=== PATIENT | female | born 1975 | race American Indian/Alaskan Native ===

== ENCOUNTER 2017-08-16 05:38 | Day surgery (SDC) | payer OTHER ==
[~2017-08-16 05:38] MED LIST: NACL 0.9% 1000 ML 1,000 ML IV SCH; PEPCID PO NR; VERSED IV NR
--- NOTE | 2017-08-16 06:39 | Short Stay Summary ---
Short Stay Documentation Date of service: 08/16/17 Narrative H&P: Pt is a 42yo BF G0 LMP 08/12/17 presents for a Novasure endometrial ablation due to prolonged heavy vaginal bleeding unresponsive to hormonal therapy. Pt does not desire fertility. Endometrial biopsy was benign. - History Principal diagnosis: DUB H&P: obtained from office Past Medical History: No medical history Past Surgical History: No surgical history Social history: no significant social history, single - Allergies and Medications Current Medications: Allergies No Known Allergies Allergy (Unverified 08/12/17 18:29) Home Medications Medication Instructions Recorded Confirmed Last Taken Type No Known Home Medications [No 08/12/17 08/12/17 Unknown History Reported Home Medications] Active Medications Famotidine (Pepcid) 20 mg PO PREOP NR Stop: 08/16/17 23:45 Sodium Chloride (Nacl 0.9% 1000 Ml) 1,000 mls @ 100 mls/hr IV DIRECT JEWELL Midazolam HCl (Versed) 2 mg IV PREOP NR Stop: 08/16/17 23:45 - Physical exam General appearance: no acute distress Integumentary: no rash HEENT: Atraumatic Lungs: Clear to auscultation Breasts: deferred Heart: Regular rate Gastrointestinal: normal Female Genitourinary: deferred Rectal Exam: deferred Extremities: no ischemia, No edema Neurological: Normal gait, Normal speech - Brief post op/procedure progress note Date of procedure: 08/16/17 Pre-op diagnosis: Dysfunctional uterine bleeding Post-op diagnosis: same Procedure: 1. Hysteroscopy 2. Novasure endometrial ablation Anesthesia: MAC Findings: A normal uterus with uterine cavity length 4.5cm, cavity width 3.6cm, and 89 Cannon of Power was used for 65 seconds to perform the ablation. No endometrial masses seen. Surgeon: ROSANNE GRAF Estimated blood loss: minimal Pathology: none Condition: stable - Hospital course Hospital course: Unremarkable. - Disposition Condition at discharge: Good Disposition: DC-01 TO HOME OR SELFCARE - Discharge Diagnoses (1) Dysfunctional uterine bleeding Status: Chronic Short Stay Discharge Plan Activity: no restrictions Diet: regular Follow up with: ROSANNE GRAF MD [Staff Physician] - 14 Days Prescriptions: HYDROcodone/APAP 5-325 [[place] 5/325] 1 each PO Q6HR PRN #20 tablet PRN Reason: Pain
[2017-08-16] MEDS ORDERED: NACL BACTERIOSTATIC INFILTRATI ONE (06:45)
[2017-08-16] MEDS ORDERED: ANCEF/STERILE WATER 2 GM/20 ML 2 GM/20 ML SYRINGE IV NR (07:00)
[2017-08-16] MEDS ORDERED: VERSED IV NR (07:00)
[2017-08-16] MEDS ORDERED: LACTATED RINGERS 1,000 ML IV SCH (07:00)
[2017-08-16] MEDS ORDERED: PEPCID PO NR (07:00)
--- NOTE | 2017-08-16 07:15 | Anesthesia Consultation ---
Anesthesia Consult and Med Hx Date of service: 08/16/17 - Airway Anesthetic Teeth Evaluation: Good ROM Head & Neck: Adequate Mental/Hyoid Distance: Adequate Mallampati Class: Class II Intubation Access Assessment: Probably Good - Pulmonary Exam CTA: Yes - Cardiac Exam Cardiac Exam: RRR - Pre-Operative Health Status ASA Pre-Surgery Classification: ASA2 Proposed Anesthetic Plan: General - Pulmonary Hx Smoking: Yes - Central Nervous System Hx Psychiatric Problems: No - Other Systems Hx Substance Use: Yes (marijuana x 2 per week) Hx Cancer: No
--- NOTE | 2017-08-16 07:15 | Anesthesia Day of Surgery ---
Anesthesia Day of Surgery - Day of Surgery Patient Examined: Yes Patient H&P Reviewed: Yes Patient is NPO: Yes
[2017-08-16] MEDS ORDERED: DECADRON ONE (07:30)
[2017-08-16] MEDS ORDERED: SUBLIMAZE ONE (07:30)
[2017-08-16] MEDS ORDERED: XYLOCAINE MPF 2% ONE (07:30)
[2017-08-16] MEDS ORDERED: ZOFRAN ONE (07:30)
[2017-08-16] MEDS ORDERED: DIPRIVAN 10 MG/ML IV ONE (07:30)
[2017-08-16 07:38] LABS: Hematocrit 39.6 % (30.3-42.9); Hemoglobin 12.8 gm/dl (10.1-14.3)
[2017-08-16] MEDS ORDERED: PERCOCET 5/325 PO PRN (08:00)
[2017-08-16] MEDS ORDERED: TORADOL ONE (08:29)
[2017-08-16] MEDS ORDERED: NACL 0.9% IR ONE (08:45)
--- NOTE | 2017-08-16 08:59 | Operative Report ---
Operative Report Operative Report: Date of procedure: 08/16/2017 Pre-operative diagnosis: Dysfunctional uterine bleeding Post-operative diagnosis: Same Procedure name(s): 1. Hysteroscopy 2. NovaSure endometrial ablation Surgeon: Ashvin Pennington MD Change Agent: None Anesthesia: Gen. mask by Dr. De Jesus EBL: Minimal Findings: A normal uterus with uterine cavity length of 4.5 cm, cavity width of 3.6 cm, and 89 W of Power was used to 65 seconds to perform the ablation. There were no uterine masses noted. Procedure: After the patient was correctly identified, she was prepped and draped in the usual sterile fashion and placed in the dorsolithotomy position. First the bladder was emptied using a straight catheter. Next a speculum was placed in the vaginal vault and the anterior lip of the cervix was grasped using single-tooth tenaculum. The uterus was sounded to 9 cm. The cervical os was sequentially dilated, and the hysteroscope was introduced into the cervical canal. Visualization of the endometrial cavity found a moderate amounts of bleeding, but no masses were seen. The hysteroscope was then removed, and the NovaSure device is placed into the endometrial cavity, with the cervical length set at 4.5 cm. After the normal manipulation of the NovaSure device, the cavity width was 3.6 cm, and 89 W of Power was used for 65 seconds to perform the ablation. After satisfactory ablation, the hysteroscope was reintroduced into the cervical canal and excellent ablation was assured. The procedure was considered complete. All instruments were then removed from the vagina, the patient tolerated the procedure well and was transferred to recovery in stable condition.
[2017-08-16] MEDS: DILAUDID IV PRN ×4 (09:15→09:48)
[2017-08-16] MEDS ORDERED: NORCO 5/325 PO SCH (10:20)
[2017-08-16 11:12] VITALS: BP 139/80
--- NOTE | 2017-08-16 18:54 | Post Anesthesia Evaluation ---
- Post Anesthesia Evaluation Patient Participated: Yes Airway Patent: Yes Stable Respiratory Function: Yes Nausea/Vomiting: No Temp > 96.8F: Yes Pain Manageable: Yes Adequeate Hydration: Yes Anesthesia Complications: No Block Receding Appropriately: Not Applicable Patient on Ventilator: No
== END 2017-08-16 11:09 | disposition home or self-care (01) ==
LOC: OR 05:38
PROVIDERS: ATTEND Obstetrics & Gynecology
DX: N93.8 Other specified abnormal uterine and vaginal bleeding (principal); F12.90 Cannabis use, unspecified, uncomplicated; F17.200 Nicotine dependence, unspecified, uncomplicated
CPT/HCPCS: 36415; 58563; 81025; 85014; 85018; A4217; J0690; J1100; J1170; J1885; J2250; J2405; J2704; J3010; J7030

== ENCOUNTER 2017-08-23 04:11 | Emergency (ER) | payer OTHER ==
[2017-08-23] MEDS ORDERED: TORADOL ONE (04:39)
[2017-08-23 04:58] LABS: Basophils % (Auto) 0.5 % (0.0-1.8); Eosinophils % (Auto) 0.3 % (0.0-4.3); Hematocrit 40.3 % (30.3-42.9); Hemoglobin 13.1 gm/dl (10.1-14.3); Mean Corpuscular HGB Conc 33 % (30-34); Mean Corpuscular Volume 77 fl (79-97); Platelet Count 320 K/mm3 (140-440); Red Blood Count 5.23 M/mm3 (3.65-5.03); Red Cell Distribution Width 18.1 % (13.2-15.2); White Blood Count 10.7 K/mm3 (4.5-11.0)
[2017-08-23 05:06] LABS: Mean Corpuscular Hemoglobin 25 pg (28-32)
[2017-08-23] MEDS ORDERED: TORADOL IV ONE (05:09)
[2017-08-23 05:19] LABS: Alanine Aminotransferase 11 units/L (7-56); Albumin 4.1 g/dL (3.9-5); Alkaline Phosphatase 78 units/L (35-129); Anion Gap 22 mmol/L; BUN/Creatinine Ratio 13; Blood Urea Nitrogen 9 mg/dL (7-17); Calcium 9.6 mg/dL (8.4-10.2); Carbon Dioxide 23 mmol/L (22-30); Chloride 99.3 mmol/L (98-107); Glucose 102 mg/dL (65-100); Lipase 17 units/L (13-60); Potassium 4.1 mmol/L (3.6-5.0); Sodium 140 mmol/L (137-145); Total Protein 8.1 g/dL (6.3-8.2)
[2017-08-23 05:55] LABS: Bilirubin,Urine SM (Negative); Blood,Urine NEG (Negative); Ketones,Urine TR mg/dL (Negative); Leukocyte Esterase,Urine NEG (Negative); Nitrite,Urine NEG (Negative)
[2017-08-23 05:56] LABS: WBC,Urine < 1.0 /HPF (0.0-6.0)
--- NOTE | 2017-08-23 09:53 | Emergency Department Report ---
Chief Complaint: Abdominal Pain Stated Complaint: ABDOMINAL PAIN Time Seen by Provider: 08/23/17 09:50 - HPI History of Present Illness: PT c/o abd pain that started at 0230 while at work. PT states she had a uterine ablation on 08-16-17 - Review of Systems: + nausea + vomiting + abd pain + dysuria - Exam Vital Signs: Vital Signs 08/23/17 04:19 Temperature 98.4 F Pulse Rate 109 H Respiratory 18 Rate Blood Pressure 135/83 O2 Sat by Pulse 100 Oximetry Physical Exam: abd soft + RUQ and epigastric ttp MSE screening note: Focused history and physical exam performed. Due to findings the following was ordered: ED Medical Decision Making - Lab Data Result diagrams: 08/23/17 04:44 08/23/17 04:44 ED Disposition for MSE Condition: Stable Instructions: Abdominal Pain (ED) Referrals: PRIMARY CARE, [Primary Care Provider] - 3-5 Days
[2017-08-23] MEDS ORDERED: NACL 0.9% 1000 ML 1,000 ML IV ONE (09:55)
[2017-08-23] MEDS ORDERED: ZOFRAN IV ONE (09:55)
--- NOTE | 2017-08-23 10:21 | Emergency Department Report ---
ED Abdominal Pain HPI - General Chief Complaint: Abdominal Pain Stated Complaint: ABDOMINAL PAIN Time Seen by Provider: 08/23/17 09:50 Source: patient, family Mode of arrival: Stretcher Limitations: No Limitations - History of Present Illness Severity scale (0 -10): 10 - Related Data Previous Rx's Medication Instructions Recorded Last Taken Type HYDROcodone/APAP 5-325 [[place] 1 each PO Q6HR PRN #20 tablet 08/16/17 Unknown Rx 5/325] Allergies Allergy/AdvReac Type Severity Reaction Status Date / Time No Known Allergies Allergy Unverified 08/12/17 18:29 ED Review of Systems ROS: Stated complaint: ABDOMINAL PAIN Other details as noted in HPI ED Past Medical Hx - Past Medical History Previous Medical History?: No Hx HIV: No - Surgical History Past Surgical History?: Yes Additional Surgical History: Uterine Ablation - Social History Smoking Status: Current Every Day Smoker Substance Use Type: None - Medications Home Medications: Home Medications Medication Instructions Recorded Confirmed Last Taken Type HYDROcodone/APAP 5-325 [[place] 1 each PO Q6HR PRN #20 tablet 08/16/17 Unknown Rx 5/325] ED Physical Exam - General Limitations: No Limitations ED Course Vital Signs 08/23/17 08/23/17 08/23/17 04:19 05:40 09:54 Temperature 98.4 F 98.4 F Pulse Rate 109 H 96 H Respiratory 18 20 18 Rate Blood Pressure 135/83 146/87 Blood Pressure 146/87 [Right] O2 Sat by Pulse 100 100 Oximetry 08/23/17 09:57 Temperature Pulse Rate Respiratory 18 Rate Blood Pressure Blood Pressure [Right] O2 Sat by Pulse 98 Oximetry ED Medical Decision Making - Lab Data Result diagrams: 08/23/17 04:44 08/23/17 04:44 Critical care attestation.: If time is entered above; I have spent that time in minutes in the direct care of this critically ill patient, excluding procedure time. ED Disposition Condition: Stable Instructions: Abdominal Pain (ED) Referrals: PRIMARY CARE, [Primary Care Provider] - 3-5 Days
--- NOTE | 2017-08-23 10:47 | Ultrasound Report ---
Ultrasound of the right upper quadrant. History: Right upper quadrant pain, nausea, and vomiting. Findings: The abdominal aorta and liver are normal. The wall of the gallbladder is normal in thickness. There is a somewhat rounded area of increased echogenicity in the neck of the gallbladder with no acoustic shadowing. This is gravity dependent. The common bile duct is normal. The right kidney is normal in size and configuration. The pancreas is not well imaged due to technical factors. Impression: Coalescent gallbladder sludge formation with no other significant findings.
[2017-08-23] MEDS ORDERED: CARAFATE PO ONE (10:52)
[2017-08-23] MEDS ORDERED: PEPCID IV ONE (10:52)
--- NOTE | 2017-08-23 10:55 | Emergency Department Report ---
ED General Adult HPI - General Chief complaint: Abdominal Pain Stated complaint: ABDOMINAL PAIN Time Seen by Provider: 08/23/17 09:50 Source: patient, family, RN notes reviewed Mode of arrival: Stretcher Limitations: No Limitations - History of Present Illness Initial comments: This is a 42-year-old female who was previously unknown to this provider. She does not have a primary care doctor. She reports a history of symptomatic vaginal bleeding, on August 16 had an outpatient uterine ablation performed by Dr. Pennington. She presents to the ER with lower abdominal pain and cramping, nausea and vomiting, epigastric and right upper quadrant pain, intermittent shortness of breath, and upper thoracic back pain. Her symptoms have been going on for the past day and a half, abdominal pain increases with palpation and decreases with rest. It does not radiate anywhere. She describes vaginal discomfort, vaginal discharge, denies irritative and obstructive urinary symptoms. No leg pain, no leg swelling, no cocaine use, no recent travel. -: Gradual Location: back, abdomen, pelvis Radiation: back Severity scale (0 -10): 10 Quality: aching Consistency: intermittent Improves with: rest Worsens with: movement Associated Symptoms: loss of appetite, malaise, nausea/vomiting, shortness of breath, weakness - Related Data Previous Rx's Medication Instructions Recorded Last Taken Type HYDROcodone/APAP 5-325 [[place] 1 each PO Q6HR PRN #20 tablet 08/16/17 Unknown Rx 5/325] Dicyclomine [Bentyl] 10 mg PO QID PRN #20 capsule 08/23/17 Unknown Rx Famotidine [Pepcid] 20 mg PO QDAY #30 tablet 08/23/17 Unknown Rx Ondansetron [Zofran Odt] 4 mg PO QID PRN #20 tab.rapdis 08/23/17 Unknown Rx Allergies Allergy/AdvReac Type Severity Reaction Status Date / Time No Known Allergies Allergy Unverified 08/12/17 18:29 ED Review of Systems ROS: Stated complaint: ABDOMINAL PAIN Other details as noted in HPI Constitutional: denies: fever Eyes: denies: eye discharge ENT: denies: epistaxis Respiratory: denies: cough Cardiovascular: denies: chest pain Gastrointestinal: abdominal pain Genitourinary: discharge Musculoskeletal: denies: back pain Skin: denies: lesions Neurological: denies: confusion Psychiatric: anxiety ED Past Medical Hx - Past Medical History Previous Medical History?: No Hx HIV: No - Surgical History Past Surgical History?: Yes Additional Surgical History: Uterine Ablation - Social History Smoking Status: Current Every Day Smoker Substance Use Type: None - Medications Home Medications: Home Medications Medication Instructions Recorded Confirmed Last Taken Type HYDROcodone/APAP 5-325 [[place] 1 each PO Q6HR PRN #20 tablet 08/16/17 Unknown Rx 5/325] Dicyclomine [Bentyl] 10 mg PO QID PRN #20 capsule 08/23/17 Unknown Rx Famotidine [Pepcid] 20 mg PO QDAY #30 tablet 08/23/17 Unknown Rx Ondansetron [Zofran Odt] 4 mg PO QID PRN #20 tab.rapdis 08/23/17 Unknown Rx ED Physical Exam - General Limitations: No Limitations General appearance: alert, in no apparent distress - Head Head exam: Present: atraumatic, normocephalic - Eye Eye exam: Present: normal appearance, EOMI. Absent: nystagmus - ENT ENT exam: Present: normal exam, normal orophraynx, mucous membranes moist, normal external ear exam - Neck Neck exam: Present: normal inspection, full ROM. Absent: tenderness, meningismus - Respiratory Respiratory exam: Present: normal lung sounds bilaterally. Absent: respiratory distress, wheezes, rales, rhonchi, stridor, chest wall tenderness, accessory muscle use, decreased breath sounds, prolonged expiratory - Cardiovascular Cardiovascular Exam: Present: regular rate, normal rhythm, normal heart sounds. Absent: bradycardia, tachycardia, irregular rhythm, systolic murmur, diastolic murmur, rubs, gallop - GI/Abdominal GI/Abdominal exam: Present: soft, tenderness, normal bowel sounds, other (there is epigastric tenderness, right upper quadrant tenderness, mild lower abdominal tenderness.). Absent: distended, guarding, rebound, rigid, pulsatile mass - External exam: Present: normal external exam Speculum exam: Present: normal speculum exam Bi-manual exam: Present: normal bi-manual exam, other (escorted by ROSLYN Nazario). Absent: cervical motion tendernes, adnexal tenderness, adnexal mass, uterine enlargement, uterine tenderness - Extremities Exam Extremities exam: Present: normal inspection, full ROM, normal capillary refill. Absent: pedal edema, joint swelling - Back Exam Back exam: Present: normal inspection, full ROM. Absent: tenderness, CVA tenderness (R), CVA tenderness (L), muscle spasm, paraspinal tenderness, vertebral tenderness - Neurological Exam Neurological exam: Present: alert, oriented X3, normal gait, other (Extraocular movements intact. Tongue midline. No facial droop. Facial sensation intact to light touch in the V1, V2, V3 distribution bilaterally. 5 and 5 strength in 4 extremities.. Sensation is intact to light touch in 4 extremities.). Absent : motor sensory deficit - Psychiatric Psychiatric exam: Present: normal affect, normal mood - Skin Skin exam: Present: warm, dry, intact, normal color. Absent: rash ED Course Vital Signs 08/23/17 08/23/17 08/23/17 04:19 05:40 09:54 Temperature 98.4 F 98.4 F Pulse Rate 109 H 96 H Respiratory 18 20 18 Rate Blood Pressure 135/83 146/87 Blood Pressure 146/87 [Right] O2 Sat by Pulse 100 100 Oximetry 08/23/17 08/23/17 09:57 13:00 Temperature 98.6 F Pulse Rate 92 H Respiratory 18 18 Rate Blood Pressure Blood Pressure 124/75 [Right] O2 Sat by Pulse 98 100 Oximetry - Reevaluation(s) Reevaluation #1: 08/23/17 13:22 Differential diagnosis: GERD, gastritis, pneumonia, pulmonary embolus, acute coronary syndrome, constipation, postsurgical complication, hiatal hernia Assessment and plan: 42-year-old female with abdominal discomfort, upper thoracic pain, nausea, vomiting, intermittent shortness of breath. Low risk by KRUNAL score, low risk by heart score, EKG and troponin unremarkable, troponin negative 2. Low risk for major adverse cardiac event. CT scan of the chest will be obtained to exclude postsurgical pulmonary embolus. CT scan of abdomen and pelvis will be obtained to exclude postsurgical intra- abdominal complications. Gynecologic examination is benign, urinalysis negative , wet prep negative, CT scan of the chest, abdomen, pelvis pending. White upper quadrant ultrasound negative for acute disease. Incidental sludge is suggested. Reevaluation #2: 08/23/17 13:25 Given lack of fever, normal liver function tests, normal lipase, ultrasound findings, I think acalculous cholecystitis is very unlikely. Reevaluation #3: 08/23/17 14:22 CT scan of the chest negative. CT scan of the abdomen and pelvis negative. Feels improved. Belly soft on repeat exam. Tolerating liquid feeds. Will be discharged with nonnarcotic pain medication, nausea medication, instructions to follow up with outpatient cardiology within the next week. Instructions to follow up with outpatient gastroenterology within the next month. ED Medical Decision Making - Lab Data Result diagrams: 08/23/17 04:44 08/23/17 04:44 - EKG Data -: EKG Interpreted by Me EKG shows normal: sinus rhythm, axis, intervals, QRS complexes, ST-T waves - EKG Data When compared to previous EKG there are: previous EKG unavailable 08/23/17 13:25 Sinus, 83 bpm, normal intervals, normal axis, not morphologically consistent with STEMI - Radiology Data Radiology results: report reviewed, image reviewed Laboratory quadrant ultrasound suggests sludge, otherwise no acute disease. No evidence of stone at this time. CT scan of the chest negative. CT scan of the abdomen and pelvis negative. Incidental findings suggested an adrenal glands, these are likely benign, the patient can follow up with an outpatient primary care doctor. Critical care attestation.: If time is entered above; I have spent that time in minutes in the direct care of this critically ill patient, excluding procedure time. ED Disposition Clinical Impression: Abdominal pain Disposition: DC-01 TO HOME OR SELFCARE Is pt being admited?: No Does the pt Need Aspirin: No Condition: Stable Instructions: Abdominal Pain (ED) Additional Instructions: Cultures were sent today, was also be available next 3-5 days. Have a primary care doctor contact medical records department to obtain culture results. Avoid consumption of heavy/spicy foods, avoid consumption of Naprosyn, ibuprofen , Aleve, aspirin. Take the pain medication, and nausea medication as directed. Follow up with any of the listed wound specialist or primary care doctor within the next week for the Epigastric abdominal pain and upper back pain. Follow up with any of the listed gastroenterology specialist ([facility]) Within the next 4 weeks. return to the ER right away with new pain, worsened pain, migration of pain, fevers, chills, lethargy, irritability, projectile vomiting, change in mental status, inability to tolerate liquid feeds. Prescriptions: Dicyclomine [Bentyl] 10 mg PO QID PRN #20 capsule PRN Reason: Pain Famotidine [Pepcid] 20 mg PO QDAY #30 tablet Ondansetron [Zofran Odt] 4 mg PO QID PRN #20 tab.rapdis PRN Reason: Nausea Referrals: PRIMARY CARE,MD [Primary Care Provider] - 3-5 Days [facility] [Provider Group] - 3-5 Days [facility] [Provider Group] - 3-5 Days [facility] [Provider Group] - 3-5 Days Forms: Work/School Release Form(ED)
[2017-08-23] MEDS ORDERED: BENTYL PO ONE (12:00)
[2017-08-23] MEDS ORDERED: NACL ONE (12:27)
[2017-08-23 13:12] VITALS: BP 124/75
--- NOTE | 2017-08-23 13:50 | Cat Scan Report ---
CT angiography of the chest with 3-D reconstructed images. History: Chest pain. Findings: There is no evidence of pulmonary embolus. The lungs are clear. There is no pleural fluid. Impression: Normal study.
--- NOTE | 2017-08-23 13:56 | Cat Scan Report ---
CT of the abdomen and pelvis with IV contrast. History: Abdominal pain. Findings: The liver, spleen, pancreas, and gallbladder appear normal. Both adrenal glands are enlarged. The left adrenal gland measures 2.2 x 3.6 cm. The right adrenal gland measures 1.3 x 3.2 cm. The kidneys are normal in size and configuration with no evidence of mass or hydronephrosis. There no pelvic masses or abnormal fluid collections. There is no evidence of appendicitis. There is no free air. Impression: No acute findings. Bilateral adrenal enlargement, greater on the left. This most likely represent a benign process.
== END 2017-08-23 14:45 | disposition home or self-care (01) ==
LOC: ED 04:11
DX: R10.9 Unspecified abdominal pain (principal); F17.200 Nicotine dependence, unspecified, uncomplicated
CPT/HCPCS: 36415; 71275; 74177; 76705; 80053; 81001; 83690; 84484; 84703; 85025; 87210; 87591; 93005; 93010; 96361; 96374; 96375; 99285; J1885; J2405; J7030; Q9967